=== PATIENT | female | born 1985 | race Caucasian/White ===

== ENCOUNTER 2021-10-01 15:55 | Emergency (ER) | payer OTHER, MEDICAID, SELFPAY ==
[2021-10-01 16:02] VITALS: BP 146/62; PULSE 84; RESP 22; TEMP 37.2; O2SAT 99
--- NOTE | 2021-10-01 16:13 | ED_ITS ---
HPI - <Shon To MD - Last Filed: 10/02/21 07:31> General Chief complaint: OB/Uterine Contractions Stated complaint: 11 weeks , heavy bleeding Time Seen by Provider: 10/01/21 16:03 Source: patient Mode of arrival: Ambulatory History of Present Illness HPI Narrative: Patient here for vaginal bleeding that started on this past Wednesday. No dizziness no syncope. Started with dark blood on Wednesday. She is A1. Followed by [facility]. She did have outpatient quantitative HCG y . The level was 2094. Patient denies denies any abdominal or pelvic pain. She did have ultrasound at 8 weeks that showed IUP. Single IUP. Patient is on vitamins. Related Data Allergies Allergy/AdvReac Type Severity Reaction Status Date / Time Penicillins Allergy Verified 10/01/21 16:03 Review of Systems <Shon To MD - Last Filed: 10/02/21 07:31> Review of Systems Narrative: GENERAL: Denies chills, fatigue, malaise, fever, sweats. HEENT: Denies sinus pain, ear pain, sore throat RESPIRATORY: Denies dyspnea, cough CARDIOVASCULAR: Denies chest pain, palpitations GASTROINTESTINAL: Denies nausea, vomiting, abdominal pain : Denies dysuria, frequency, hematuria, positive for vaginal bleeding MUSCULOSKELETAL: denies muscle or bony pain SKIN: Denies rash, skin lesions NEUROLOGIC: Denies weakness, numbness ROS Unobtainable: All systems reviewed & are unremarkable except as noted in HPI and below Exam <Shon To MD - Last Filed: 10/02/21 07:31> Narrative Exam Narrative: GENERAL: in no distress, not toxic not dyspneic HEAD: Normocephalic. EYES: Pupils equal round No scleral icterus. ENT: Mucous membranes moist. NECK: Trachea midline. CARDIOVASCULAR: Regular rate and rhythm without murmurs RESPIRATORY: Clear to auscultation. Breath sounds equal bilaterally. No wheezes, rales, or rhonchi. GASTROINTESTINAL: Abdomen soft, non-tender : Normal external exam. No lesions. Moderate amount blood clots in the vaginal vault. Cleared with Q-tip. No tissue at the os. No discharge. Female nurse at bedside to family readiness support assistant and supply assistant, nurse Ambrocio EXTREMITIES: No gross deformities. BACK: No flank tenderness. NEURO: AOx4. SKIN: Warm and dry PSYCH: Not anxious, is cooperative Initial Vital Signs Initial Vital Signs: Vital Signs Temperature 98.9 F 10/01/21 16:02 Pulse Rate 84 10/01/21 16:02 Respiratory Rate 22 10/01/21 16:02 Blood Pressure 146/62 H 10/01/21 16:02 Pulse Oximetry 99 10/01/21 16:02 <Viridiana Oquendo MD - Last Filed: 10/02/21 03:41> Initial Vital Signs Initial Vital Signs: Vital Signs Temperature 98.9 F 10/01/21 16:02 Pulse Rate 84 10/01/21 16:02 Respiratory Rate 22 10/01/21 16:02 Blood Pressure 146/62 H 10/01/21 16:02 Pulse Oximetry 99 10/01/21 16:02 Course <Shon To MD - Last Filed: 10/02/21 07:31> Course Course Narrative: 6:00 p.m.. Labs are pending for quantitative hCG and Rh. However patient did not receive RhoGAM because of her blood type on the last miscarriage. hCG will not liner roll changer. Orders Ordered: ED Orders 10/01/21 16:15 US OB <= 14 weeks fetus Stat 10/01/21 17:03 ABO RH Type Stat Complete Blood Count AUTO DIFF Stat Comprehensive Metabolic Panel Stat HCG Quantitative /Beta subunit Stat Partial Thromboplastin Time Stat Prothrombin Time INR Stat 10/01/21 17:51 Urine Culture Stat Urine Microscopic Stat Reevaluation(s) Reevaluation #1: Reviewed with patient and results so far, some blood work is pending. Ultrasound shows likely miscarriage. She does understand these to closely follow-up with her OBGYN this week. Time: 17:48 Vital Signs Vital signs: Vital Signs - 8 hr 10/01/21 16:02 10/01/21 18:26 Temperature 98.9 F Pulse Rate 84 80 Respiratory Rate 22 18 Blood Pressure 146/62 H 139/64 Pulse Oximetry 99 96 <Viridiana Oquendo MD - Last Filed: 10/02/21 03:41> Orders Ordered: ED Orders 10/01/21 16:15 US OB <= 14 weeks fetus Stat 10/01/21 17:03 ABO RH Type Stat Complete Blood Count AUTO DIFF Stat Comprehensive Metabolic Panel Stat HCG Quantitative /Beta subunit Stat Partial Thromboplastin Time Stat Prothrombin Time INR Stat 10/01/21 17:51 Urine Culture Stat Urine Microscopic Stat Vital Signs Vital signs: Vital Signs - 8 hr 10/01/21 16:02 10/01/21 18:26 Temperature 98.9 F Pulse Rate 84 80 Respiratory Rate 22 18 Blood Pressure 146/62 H 139/64 Pulse Oximetry 99 96 MDM - OB/Uterine Contractions <Shon To MD - Last Filed: 10/02/21 07:31> Differential Diagnosis Differential diagnosis: Likely other (Threatened miscarriage. Incomplete miscarriage.) Lab Data Result diagrams: 10/01/21 17:03 10/01/21 17:03 Labs: Lab Results 10/01/21 10/01/21 10/01/21 Range/Units 17:03 17:03 17:03 WBC 8.5 (4.5-11.0) X10^3/uL RBC 4.56 (4.0-5.2) X10^6/uL Hgb 12.9 (12.0-16.0) g/dL Hct 37.7 (36-46) % MCV 82.8 (80-100) fL MCH 28.3 (26-34) PG MCHC 34.2 (30-36) % RDW 14.2 (11.6-14.8) % Plt Count 222 (150-400) X10^3/uL Neut % (Auto) 69.5 (50-75) % Lymph % (Auto) 22.8 L (25-40) % Monroe % (Auto) 5.9 (3-14) % Eos % (Auto) 1.2 L (2-4) % Baso % (Auto) 0.6 (0-2) % Neut # (Auto) 5900 (5123-0648) /uL Lymph # (Auto) 2000 (1179-0149) /uL Monroe # (Auto) 500 (0-900) /uL Eos # (Auto) 100 (0-450) /uL Baso # (Auto) 100 (0-100) /uL PT 12.2 (10.1-12.7) SECONDS INR 1.1 (0.9-1.3) APTT 36 (26.4-36.2) SECONDS Sodium 138 (137-145) mmol/L Potassium 3.6 (3.4-5.1) mmol/L Chloride 103 (98-107) mmol/L Carbon Dioxide 24 (22-32) mmol/L BUN 9 (7-17) mg/dL Creatinine 0.44 L (0.52-1.04) mg/dL Estimated GFR > 60.0 (>60) mL/min BUN/Creatinine Ratio 20.5 (6-22) Glucose 115 H (70-100) mg/dL Calcium 9.6 (8.4-10.2) mg/dL Total Bilirubin 0.7 (0.2-1.3) mg/dL AST 38 H (14-36) IU/L ALT 52 H (<35) IU/L Alkaline Phosphatase 43 (38-126) U/L Total Protein 7.8 (6.3-8.2) g/dL Albumin 4.7 (3.5-5.0) g/dL Globulin 3.1 (1.7-4.1) g/dL Albumin/Globulin Ratio 1.5 (1.0-2.8) HCG, Quant 1710.0 mIU/mL Urine RBC (0-5/HPF) Urine WBC (0-5/HPF) Ur Squamous Epith Cells (0-5/HPF) Amorphous Sediment Urine Bacteria (None) Urine Mucus (Negative) Ur Culture Indicated? Blood Type 10/01/21 10/01/21 Range/Units 17:03 17:51 WBC (4.5-11.0) X10^3/uL RBC (4.0-5.2) X10^6/uL Hgb (12.0-16.0) g/dL Hct (36-46) % MCV (80-100) fL MCH (26-34) PG MCHC (30-36) % RDW (11.6-14.8) % Plt Count (150-400) X10^3/uL Neut % (Auto) (50-75) % Lymph % (Auto) (25-40) % Monroe % (Auto) (3-14) % Eos % (Auto) (2-4) % Baso % (Auto) (0-2) % Neut # (Auto) (5688-8255) /uL Lymph # (Auto) (2123-0120) /uL Monroe # (Auto) (0-900) /uL Eos # (Auto) (0-450) /uL Baso # (Auto) (0-100) /uL PT (10.1-12.7) SECONDS INR (0.9-1.3) APTT (26.4-36.2) SECONDS Sodium (137-145) mmol/L Potassium (3.4-5.1) mmol/L Chloride (98-107) mmol/L Carbon Dioxide (22-32) mmol/L BUN (7-17) mg/dL Creatinine (0.52-1.04) mg/dL Estimated GFR (>60) mL/min BUN/Creatinine Ratio (6-22) Glucose (70-100) mg/dL Calcium (8.4-10.2) mg/dL Total Bilirubin (0.2-1.3) mg/dL AST (14-36) IU/L ALT (<35) IU/L Alkaline Phosphatase (38-126) U/L Total Protein (6.3-8.2) g/dL Albumin (3.5-5.0) g/dL Globulin (1.7-4.1) g/dL Albumin/Globulin Ratio (1.0-2.8) HCG, Quant mIU/mL Urine RBC >100/hpf H (0-5/HPF) Urine WBC 1-5/hpf (0-5/HPF) Ur Squamous Epith Cells 1-5 /hpf (0-5/HPF) Amorphous Sediment 1+ Urine Bacteria Occasional (0-1) (None) Urine Mucus 1+ H (Negative) Ur Culture Indicated? Culture not indicate Blood Type A Positive Urine Dip Bedside Urine Glucose Negative Bedside Urine Bilirubin - Negative Bedside Urine Ketone - Negative Urine Specific Mineral 1.030 Bedside Urine Occult Blood +++ Bedside Urine pH 5.5 Bedside Urine Protein ++ 100 Bedside Urine Urobilinogen 2+ 4mg Bedside Urine Nitrite - Negative Bedside Urine Leukocytes + 70 Esterase Imaging Data US - OB: Radiologist's Impression: [address] [address] Ultrasound Report Signed Patient: Salena Moreno MR#: [id number] : 1985 Acct:[id number] Age/Sex: 36 / F Date of Service: 10/01/21 Loc: ED Accession Number: [id number] ?? Procedure: US OB <= 14 weeks fetus Ordering Provider: Shon To MD PROCEDURE:? US OB <= 14 WEEKS FETUS ? INDICATIONS:? VAGINAL BLEEDING ? OUTSIDE/PRIOR DATING DATA:? Last menstrual period (LMP):? 06/02/2021.? LMP-based estimated date of delivery (RONALD):? 03/08/2022.? First dating scan (date and location):? 10/01/2021.? Estimated date of delivery (RONALD) from first dating scan: n.a. ? ? TECHNIQUE:? Real-time scanning was performed of the fetus and maternal pelvic organs, with image documentation.? Endovaginal scanning was also performed to better visualize the fetus and maternal ovaries.? ? COMPARISON:? None. ? FINDINGS:? ? Embryo:? There is an density with the crown-rump length measuring measuring 8 weeks 5 days, discordant with clinical dating (17 weeks 3 days).? There is no heart tone.? Yolk sac is not visualized. ? ? Maternal organs:? Ovaries are not visualized. ? ? ? IMPRESSION:? ? 1. An intrauterine gestation is identified with a pole.? The estimated gestational age of 8 weeks 5 days, discordant with clinical dating.? No heart tone is present.? The ultrasound findings are compatible with 1st trimester failure.? Recommend clinical correlation. ? ? We strive to produce accurate, complete, and clear reports of imaging services. To assist us in improving patient care, this report was composed using standard report templates and voice recognition software. Therefore, it may contain abnormal punctuation, insertions and/or omissions. Occasional wrong-word or sound-alike substitutions may occur. Though we review the report and make efforts to correct it, we do recommend that the report be read carefully in proper context to recognize any text inaccuracies. ? ? ? Dictated by: Kelly Lion M.D. on 10/01/2021 at 17:15 ? ? Approved by: Kelly Lion M.D. on 10/01/2021 at 17:21 ? MDM Narrative Medical decision making narrative: Appropriate for discharge home. Patient states on her 1st miscarriage she did not receive RhoGAM shot. She states her blood type was the opposite of the 1 that requires RhoGAM shot. Exam otherwise reassuring as well as blood work. She does have follow-up resources for OBGYN. Return precautions reviewed with her. <Viridiana Oquendo MD - Last Filed: 10/02/21 03:41> Lab Data Labs: Lab Results 10/01/21 10/01/21 10/01/21 Range/Units 17:03 17:03 17:03 WBC 8.5 (4.5-11.0) X10^3/uL RBC 4.56 (4.0-5.2) X10^6/uL Hgb 12.9 (12.0-16.0) g/dL Hct 37.7 (36-46) % MCV 82.8 (80-100) fL MCH 28.3 (26-34) PG MCHC 34.2 (30-36) % RDW 14.2 (11.6-14.8) % Plt Count 222 (150-400) X10^3/uL Neut % (Auto) 69.5 (50-75) % Lymph % (Auto) 22.8 L (25-40) % Monroe % (Auto) 5.9 (3-14) % Eos % (Auto) 1.2 L (2-4) % Baso % (Auto) 0.6 (0-2) % Neut # (Auto) 5900 (6019-1280) /uL Lymph # (Auto) 2000 (3886-6179) /uL Monroe # (Auto) 500 (0-900) /uL Eos # (Auto) 100 (0-450) /uL Baso # (Auto) 100 (0-100) /uL PT 12.2 (10.1-12.7) SECONDS INR 1.1 (0.9-1.3) APTT 36 (26.4-36.2) SECONDS Sodium 138 (137-145) mmol/L Potassium 3.6 (3.4-5.1) mmol/L Chloride 103 (98-107) mmol/L Carbon Dioxide 24 (22-32) mmol/L BUN 9 (7-17) mg/dL Creatinine 0.44 L (0.52-1.04) mg/dL Estimated GFR > 60.0 (>60) mL/min BUN/Creatinine Ratio 20.5 (6-22) Glucose 115 H (70-100) mg/dL Calcium 9.6 (8.4-10.2) mg/dL Total Bilirubin 0.7 (0.2-1.3) mg/dL AST 38 H (14-36) IU/L ALT 52 H (<35) IU/L Alkaline Phosphatase 43 (38-126) U/L Total Protein 7.8 (6.3-8.2) g/dL Albumin 4.7 (3.5-5.0) g/dL Globulin 3.1 (1.7-4.1) g/dL Albumin/Globulin Ratio 1.5 (1.0-2.8) HCG, Quant 1710.0 mIU/mL Urine RBC (0-5/HPF) Urine WBC (0-5/HPF) Ur Squamous Epith Cells (0-5/HPF) Amorphous Sediment Urine Bacteria (None) Urine Mucus (Negative) Ur Culture Indicated? Blood Type 10/01/21 10/01/21 Range/Units 17:03 17:51 WBC (4.5-11.0) X10^3/uL RBC (4.0-5.2) X10^6/uL Hgb (12.0-16.0) g/dL Hct (36-46) % MCV (80-100) fL MCH (26-34) PG MCHC (30-36) % RDW (11.6-14.8) % Plt Count (150-400) X10^3/uL Neut % (Auto) (50-75) % Lymph % (Auto) (25-40) % Monroe % (Auto) (3-14) % Eos % (Auto) (2-4) % Baso % (Auto) (0-2) % Neut # (Auto) (1680-4256) /uL Lymph # (Auto) (9976-2460) /uL Monroe # (Auto) (0-900) /uL Eos # (Auto) (0-450) /uL Baso # (Auto) (0-100) /uL PT (10.1-12.7) SECONDS INR (0.9-1.3) APTT (26.4-36.2) SECONDS Sodium (137-145) mmol/L Potassium (3.4-5.1) mmol/L Chloride (98-107) mmol/L Carbon Dioxide (22-32) mmol/L BUN (7-17) mg/dL Creatinine (0.52-1.04) mg/dL Estimated GFR (>60) mL/min BUN/Creatinine Ratio (6-22) Glucose (70-100) mg/dL Calcium (8.4-10.2) mg/dL Total Bilirubin (0.2-1.3) mg/dL AST (14-36) IU/L ALT (<35) IU/L Alkaline Phosphatase (38-126) U/L Total Protein (6.3-8.2) g/dL Albumin (3.5-5.0) g/dL Globulin (1.7-4.1) g/dL Albumin/Globulin Ratio (1.0-2.8) HCG, Quant mIU/mL Urine RBC >100/hpf H (0-5/HPF) Urine WBC 1-5/hpf (0-5/HPF) Ur Squamous Epith Cells 1-5 /hpf (0-5/HPF) Amorphous Sediment 1+ Urine Bacteria Occasional (0-1) (None) Urine Mucus 1+ H (Negative) Ur Culture Indicated? Culture not indicate Blood Type A Positive Urine Dip Bedside Urine Glucose Negative Bedside Urine Bilirubin - Negative Bedside Urine Ketone - Negative Urine Specific Mineral 1.030 Bedside Urine Occult Blood +++ Bedside Urine pH 5.5 Bedside Urine Protein ++ 100 Bedside Urine Urobilinogen 2+ 4mg Bedside Urine Nitrite - Negative Bedside Urine Leukocytes + 70 Esterase MDM Narrative Medical decision making narrative: Appropriate for discharge home. Patient states on her 1st miscarriage she did not receive RhoGAM shot. She states her blood type was the opposite of the 1 that requires RhoGAM shot. Exam otherwise reassuring as well as blood work. She does have follow-up resources for OBGYN. Return precautions reviewed with her. 630pm Dr Rivas Francisco at [facility] where she recieves her care was notified of finding. He will let her OB know and have their office reach out to schedule a follow up appointment. Discharge Plan Departure Patient Disposition: Home Clinical Impression: Miscarriage Instructions: DI for Miscarriage Activity Restrictions/Additional Instructions: Please call your OBGYN doctor tomorrow for office appointment this week. Results from today indicate miscarriage occurring. Return if worse if any questions or concerns. Stand Alone Forms: Work Release Note
--- NOTE | 2021-10-01 16:15 | DI.US.S_ITS ---
PROCEDURE: US OB <= 14 WEEKS FETUS INDICATIONS: VAGINAL BLEEDING OUTSIDE/PRIOR DATING DATA: Last menstrual period (LMP): 06/02/2021. LMP-based estimated date of delivery (RONALD): 03/08/2022. First dating scan (date and location): 10/01/2021. Estimated date of delivery (RONALD) from first dating scan: n.a. TECHNIQUE: Real-time scanning was performed of the fetus and maternal pelvic organs, with image documentation. Endovaginal scanning was also performed to better visualize the fetus and maternal ovaries. COMPARISON: None. FINDINGS: Embryo: There is an density with the crown-rump length measuring measuring 8 weeks 5 days, discordant with clinical dating (17 weeks 3 days). There is no heart tone. Yolk sac is not visualized. Maternal organs: Ovaries are not visualized. IMPRESSION: 1. An intrauterine gestation is identified with a pole. The estimated gestational age of 8 weeks 5 days, discordant with clinical dating. No heart tone is present. The ultrasound findings are compatible with 1st trimester failure. Recommend clinical correlation. We strive to produce accurate, complete, and clear reports of imaging services. To assist us in improving patient care, this report was composed using standard report templates and voice recognition software. Therefore, it may contain abnormal punctuation, insertions and/or omissions. Occasional wrong-word or sound-alike substitutions may occur. Though we review the report and make efforts to correct it, we do recommend that the report be read carefully in proper context to recognize any text inaccuracies. Dictated by: Kelly Lion M.D. on 10/01/2021 at 17:15 Approved by: Kelly Lion M.D. on 10/01/2021 at 17:21
[2021-10-01 17:16] LABS: Add Manual Diff / Slide Review NO; Basophils Absolute Auto 100 /uL (0-100); Basophils Percent Auto 0.6 % (0-2); Eosinophils Absolute Auto 100 /uL (0-450); Eosinophils Percent Auto 1.2 % (2-4); Hematocrit 37.7 % (36-46); Hemoglobin 12.9 g/dL (12.0-16.0); Lymphocytes Absolute Auto 2000 /uL (1100-4500); Lymphocytes Percent Auto 22.8 % (25-40); Mean Corpuscular HGB Conc 34.2 % (30-36); Mean Corpuscular Hemoglobin 28.3 PG (26-34); Mean Corpuscular Volume 82.8 fL (80-100); Monocytes Absolute Auto 500 /uL (0-900); Monocytes Percent Auto 5.9 % (3-14); Neutrophils Absolute Auto 5900 /uL (1500-7000); Neutrophils Percent Auto 69.5 % (50-75); Platelet Count 222 X10^3/uL (150-400); Red Blood Cell Count 4.56 X10^6/uL (4.0-5.2); Red Cell Distribution Width 14.2 % (11.6-14.8); White Blood Cell Count 8.5 X10^3/uL (4.5-11.0)
[2021-10-01 17:20] LABS: INR 1.1 (0.9-1.3); Prothrombin Time 12.2 SECONDS (10.1-12.7)
[2021-10-01 17:22] LABS: PTT Partial Thromboplastin Tim 36 SECONDS (26.4-36.2)
[2021-10-01 17:31] LABS: Alanine Aminotransferase 52 IU/L (<35); Albumin 4.7 g/dL (3.5-5.0); Albumin Globulin Ratio 1.5 (1.0-2.8); Alkaline Phosphatase 43 U/L (38-126); Aspartate Aminotransferase 38 IU/L (14-36); BUN Creatinine Ratio 20.5 (6-22); Bilirubin Total 0.7 mg/dL (0.2-1.3); Blood Urea Nitrogen 9 mg/dL (7-17); Calcium 9.6 mg/dL (8.4-10.2); Carbon Dioxide 24 mmol/L (22-32); Chloride 103 mmol/L (98-107); Estimated Glomerular Filt Rate > 60.0 mL/min (>60); Globulin 3.1 g/dL (1.7-4.1); Glucose 115 mg/dL (70-100); HEMOLYSIS 21 (0-50); Potassium 3.6 mmol/L (3.4-5.1); Sodium 138 mmol/L (137-145); Total Protein 7.8 g/dL (6.3-8.2)
[2021-10-01 18:22] LABS: Amorphous Sediment Urine 1+; Bacteria Urine Occasional (0-1); Mucus Urine 1+ (Negative); RBC Urine >100/HPF (0-5/HPF); Squamous Epithelial Cell Urine 1-5 /HPF (0-5/HPF); WBC Urine 1-5/HPF (0-5/HPF)
[2021-10-01 18:26] VITALS: BP 139/64; PULSE 80; RESP 18; O2SAT 96
== END 2021-10-01 18:27 | disposition home or self-care (01) ==
PROVIDERS: Emergency Provider Emergency Medicine
DX: O03.9 Complete or unspecified spontaneous abortion without complication (principal)
CPT/HCPCS: 36415; 76801; 76817; 80053; 81003; 81015; 84702; 85025; 85610; 85730; 86900; 86901; 87086; 99284